=== PATIENT | male | born 1980 | race Caucasian/White ===

== ENCOUNTER → 2016-06-20 | Outpatient (CLI) | payer MEDICAID ==
[~2016-06-20] MED LIST: AMOXICILLIN 50500 MG PO; AMOXICILLIN 8751 TAB PO; FLEXERIL 1010 MG/TAB PO; IMITREX50 MG PO; LORTAB 5/500 501 TAB PO; NAPROSYN500 MG PO; NO HOME MEDICATIONS; PREDNISONE10 MG PO; SKELAXIN800 MG PO; SOMA250 MG PO; TOPAMAX 25MG25 M1 PO; TOPAMAX50 MG PO; VALIUM5 MG PO
== END ==
LOC: COL.RAD 10:46
DX: G43.109 Migraine with aura, not intractable, without status migrainosus (principal); M54.89 Other dorsalgia; M62.838 Other muscle spasm

== ENCOUNTER 2016-08-08 13:47 | Emergency (ER) | payer MEDICAID ==
[~2016-08-08] VITALS: Ht 167.6 cm; Wt 92.7 kg
[~2016-08-08 13:47] MED LIST changes: -AMOXICILLIN 8751 TAB PO; -FLEXERIL 1010 MG/TAB PO; -IMITREX50 MG PO; -PREDNISONE10 MG PO; -SOMA250 MG PO; -TOPAMAX 25MG25 M1 PO; -TOPAMAX50 MG PO
[2016-08-08 13:49] VITALS: BP 135/68; TEMP 98.2
[2016-08-08] MEDS ORDERED: TOPAMAX50 MG PO (13:52)
[2016-08-08 14:50] LABS: INFLUENZA B NEGATIVE
[2016-08-08] MEDS ORDERED: PREDNISONE10 MG PO (15:14)
[2016-08-08 15:30] VITALS: PULSE 73
== END 2016-08-08 15:30 | disposition home or self-care (01) ==
LOC: COL.ER 13:47
PROVIDERS: Nurse Practitioner
DX: J02.9 Acute pharyngitis, unspecified (principal); J06.9 Acute upper respiratory infection, unspecified; B34.9 Viral infection, unspecified; R59.0 Localized enlarged lymph nodes

== ENCOUNTER 2016-08-19 19:10 | Emergency (ER) | payer MEDICAID ==
[~2016-08-19] VITALS: Ht 167.6 cm; Wt 91.4 kg
[~2016-08-19 19:10] MED LIST changes: +PREDNISONE10 MG PO; +TOPAMAX50 MG PO
[2016-08-19 19:15] VITALS: BP 140/82; TEMP 98.4
[2016-08-19] MEDS ORDERED: SOMA250 MG PO (19:19)
[2016-08-19] MEDS ORDERED: IMITREX50 MG PO (19:19)
[2016-08-19] MEDS ORDERED: AMOXICILLIN 8751 TAB PO (20:39)
[2016-08-19 21:09] VITALS: PULSE 64
== END 2016-08-19 21:00 | disposition home or self-care (01) ==
LOC: COL.ER 19:10
DX: J02.9 Acute pharyngitis, unspecified (principal); J32.9 Chronic sinusitis, unspecified; R05 Cough

== ENCOUNTER 2016-12-21 18:54 | Emergency (ER) | payer MEDICAID ==
[~2016-12-21 18:54] MED LIST changes: +AMOXICILLIN 8751 TAB PO; +IMITREX50 MG PO; +SOMA250 MG PO
[2016-12-21 18:57] VITALS: BP 130/65; TEMP 97.5
[2016-12-21] MEDS ORDERED: TOPAMAX 25MG25 M1 PO (19:01)
[2016-12-21] MEDS ORDERED: FLEXERIL 1010 MG/TAB PO (20:07)
[2016-12-21 20:24] VITALS: PULSE 66
== END 2016-12-21 20:25 | disposition home or self-care (01) ==
LOC: COL.ER 18:54
DX: M54.42 Lumbago with sciatica, left side (principal); G89.29 Other chronic pain; G43.909 Migraine, unspecified, not intractable, without status migrainosus; Z87.828 Personal history of other (healed) physical injury and trauma
CPT/HCPCS: J1170; J2360

== ENCOUNTER 2017-10-23 13:19 | Emergency (ER) | payer MEDICAID ==
[~2017-10-23] VITALS: Ht 167.6 cm; Wt 89.1 kg
[~2017-10-23 13:19] MED LIST changes: +FLEXERIL 1010 MG/TAB PO; +TOPAMAX 25MG25 M1 PO
[2017-10-23 13:23] VITALS: BP 118/66; PULSE 64; TEMP 99
== END 2017-10-23 14:57 | disposition home or self-care (01) ==
LOC: COL.ER 13:19
DX: S90.121A Contusion of right lesser toe(s) without damage to nail, initial encounter (principal); W01.0XXA Fall on same level from slipping, tripping and stumbling without subsequent striking against object, initial encounter; Y92.009 Unspecified place in unspecified non-institutional (private) residence as the place of occurrence of the external cause

== ENCOUNTER 2017-11-04 13:45 | Outpatient (RCR) | payer MEDICAID ==
[2017-11-29] MEDS ORDERED: MOTRIN 800800 MG/TAB PO ×2 (16:36→17:00)
[2017-11-29] MEDS ORDERED: FLEXERIL 1010 MG/TAB PO (17:00)
== END 2017-12-31 | disposition home or self-care (01) ==
LOC: WSC
DX: M54.17 Radiculopathy, lumbosacral region (principal)
CPT/HCPCS: G8978-GP; G8979-GP

== ENCOUNTER 2017-11-29 16:19 | Emergency (ER) | payer MEDICAID ==
[~2017-11-29] VITALS: Ht 167.6 cm; Wt 89.5 kg
[2017-11-29 16:22] VITALS: TEMP 98.9
[2017-11-29] MEDS ORDERED: MOTRIN 800800 MG/TAB PO ×2 (16:36→17:00)
[2017-11-29] MEDS ORDERED: FLEXERIL 1010 MG/TAB PO (17:00)
[2017-11-29 17:17] VITALS: BP 111/63; PULSE 57
== END 2017-11-29 17:17 | disposition home or self-care (01) ==
LOC: COL.ER 16:19
DX: M54.42 Lumbago with sciatica, left side (principal)

== ENCOUNTER 2018-05-21 20:53 | Emergency (ER) | payer MEDICAID ==
[~2018-05-21] VITALS: Ht 167.6 cm; Wt 83.6 kg
[~2018-05-21 20:53] MED LIST changes: +MOTRIN 800800 MG/TAB PO
[2018-05-21 20:56] VITALS: BP 130/65; PULSE 70; TEMP 98.3
== END 2018-05-21 22:28 | disposition home or self-care (01) ==
LOC: COL.ER 20:53
DX: M54.5 Low back pain (principal); G89.29 Other chronic pain; Z79.1 Long term (current) use of non-steroidal anti-inflammatories (NSAID)
CPT/HCPCS: J1885

== ENCOUNTER → 2018-11-11 | Outpatient (CLI) | payer MEDICAID | LOC: COL.RAD 07:53 | DX: M47.817 Spondylosis without myelopathy or radiculopathy, lumbosacral region (principal) ==

== ENCOUNTER → 2019-03-04 | Outpatient (CLI) | payer MEDICAID ==
[~2019-03-04] MED LIST changes: +ANTIVERT 25MG25 MG PO
== END ==
LOC: MHCPAIN 13:20
DX: G89.29 Other chronic pain (principal); M47.817 Spondylosis without myelopathy or radiculopathy, lumbosacral region; M53.3 Sacrococcygeal disorders, not elsewhere classified
CPT/HCPCS: G0463

== ENCOUNTER 2019-03-09 17:49 | Emergency (ER) | payer MEDICAID ==
[~2019-03-09] VITALS: Ht 167.6 cm; Wt 80.0 kg
[~2019-03-09 17:49] MED LIST changes: -ANTIVERT 25MG25 MG PO
[2019-03-09 17:52] VITALS: TEMP 97.9
[2019-03-09 18:23] LABS: BASO # 0.1 (0.0-0.2); BASO % 0.8 % (0.0-2.0); EOS # 0.2 (0.0-0.7); EOS % 2.3 % (0-4.0); GRAN % 60.1 % (42.2-75.2); HEMATOCRIT 43.3 % (42.0-52.0); HEMOGLOBIN 14.9 g/dl (13.5-18.0); LYMPH # 1.9 (1.2-3.4); LYMPH % 29.1 % (20.0-51.0); MEAN CELL VOLUME 92 fl (80.0-100.0); MEAN CORPUSCULAR HEMOGLOBIN 32 pg (27.0-31.0); MEAN CORPUSCULAR HGB CONC 34 g/dl (33.0-37.0); MEAN PLATELET VOLUME 10.7 fl (7.4-10.4); MONO # 0.5 (0.1-0.6); MONO % 7.5 % (1.7-9.3); PLATELET COUNT 166 K/mm3 (130-400); RED BLOOD COUNT 4.71 M/mm3 (4.20-5.60); REDCELL DISTRIBUTION WIDTH-CV 12.6 % (11.5-14.5)
[2019-03-09 18:25] VITALS: BP 121/70
[2019-03-09 18:33] LABS: ALANINE AMINOTRANSFERASE 28 U/L (21-72); ALBUMIN 4.6 gm/dL (3.5-5.0); ALKALINE PHOSPHATASE 58 U/L (50-136); ANION GAP 11 mmol/L (7-16); AST,SGOT 27 U/L (15-37); BILIRUBIN,TOTAL 0.3 mg/dL (0.0-1.0); BLOOD UREA NITROGEN 16 mg/dL (9-20); CALCIUM 9.4 mg/dL (8.4-10.2); CARBON DIOXIDE 27 mmol/L (22-30); CHLORIDE 102 mmol/L (98-107); CREATININE, serum 0.87 (0.66-1.25); GLUCOSE 96 mg/dL (74-106); POTASSIUM 4.1 mmol/L (3.4-5.0); SODIUM 139 mmol/L (137-145); TOTAL PROTEIN 8.3 gm/dL (6.4-8.2)
[2019-03-09 18:36] LABS: C-REACTIVE PROTEIN < 0.5 mg/dL (0.0-0.9)
[2019-03-09 18:48] LABS: TROPONIN-I < 0.012 ng/mL (0.000-0.035)
[2019-03-09] MEDS ORDERED: ANTIVERT 25MG25 MG PO (19:19)
[2019-03-09 19:33] VITALS: PULSE 52
== END 2019-03-09 19:33 | disposition home or self-care (01) ==
LOC: COL.ER 17:49
PROVIDERS: Emergency Medicine
DX: G43.909 Migraine, unspecified, not intractable, without status migrainosus (principal); R42 Dizziness and giddiness
CPT/HCPCS: J2060; J2405; J3010; J7030

== ENCOUNTER 2020-01-23 20:27 | Emergency (ER) | payer MEDICAID ==
[~2020-01-23] VITALS: Ht 177.8 cm; Wt 81.8 kg
[2020-01-23 20:27] VITALS: TEMP 97.2
[~2020-01-23 20:27] MED LIST changes: +ANTIVERT 25MG25 MG PO
[2020-01-23 20:50] VITALS: BP 162/86; PULSE 55
[2020-01-23 21:42] LABS: ARTERIAL BLD GAS O2 SATURATION 99.5 % (92-100); ARTERIAL BLD GAS TCO2 CT 20.5; ARTERIAL BLOOD GAS BASE EXCESS -3.2 (-2-2); ARTERIAL BLOOD GAS HCO3 19.6 meq/L (22-26); ARTERIAL BLOOD GAS PCO2 29.6 mmHg (35-45); ARTERIAL BLOOD GAS pH 7.44 (7.35-7.45)
== END 2020-01-23 21:00 | disposition short-term general hospital (02) ==
LOC: COL.ER 20:27
PROVIDERS: Emergency Medicine
DX: S09.90XA Unspecified injury of head, initial encounter (principal); V28.4XXA Motorcycle driver injured in noncollision transport accident in traffic accident, initial encounter; Y92.410 Unspecified street and highway as the place of occurrence of the external cause
CPT/HCPCS: J2250; J3010; J7030